=== PATIENT | male | born 1945 | race Caucasian/White ===

== ENCOUNTER 2017-09-14 08:30 | Inpatient (IN) | payer MEDICARE, BC ==
[~2017-09-14] VITALS: Ht 175.3 cm; Wt 78.5 kg
[2017-09-17] VITALS (14 sets, daily range): BP systolic 116–167; BP diastolic 61–81; PULSE 65–88; RESP 16; TEMP 98–98.2; O2SAT 97–99
[2017-09-17] MEDS ORDERED: VANCOMYCIN 1000 MG/NS 250 ML ON-CALL IV SCH ×2 (07:00)
[2017-09-17] MEDS ORDERED: DILT120C50 PO (07:18)
[2017-09-17] MEDS ORDERED: APIX5TAB PO (07:18)
[2017-09-17] MEDS ORDERED: ATOR10TA15 PO (07:18)
[2017-09-17] MEDS ORDERED: CYAN100025 SL (07:18)
[2017-09-17] MEDS ORDERED: ALLO100T PO (07:18)
[2017-09-17] MEDS ORDERED: HEPARIN SODIUM - IV 10,000 UNITS/10 ML VIAL ONE (07:19)
[2017-09-17] MEDS ORDERED: BUPIVACAINE/EPINEPHRINE 0.5% PF 30 ML VIAL ONE (07:19)
[2017-09-17] MEDS ORDERED: HEPARIN SODIUM - SQ 10,000 UNITS/ML VIAL ONE (07:19)
[2017-09-17] MEDS ORDERED: ceFAZolin INJ 1,000 MG VIAL ONE (07:19)
[2017-09-17] MEDS ORDERED: PROTAMINE SULFATE 50 MG/5 ML VIAL ONE (07:19)
[2017-09-17] MEDS ORDERED: HEPARIN-NS/PF INJ 0 ML ONE (07:20)
[2017-09-17] MEDS ORDERED: POVIDONE IODINE 5% (ANTISEPSIS KIT) 4 APPLICATIONS EACH NARE PRN (07:30)
[2017-09-17] MEDS ORDERED: METOPROLOL TARTRATE 25 MG TAB PO PRN (07:30)
[2017-09-17] MEDS ORDERED: CHLORHEXIDINE GLUCONATE 2 % 1 PACK (2 CLOTHS) TOPICAL PRN (07:30)
[2017-09-17] MEDS ORDERED: LACTATED RINGER'S 1000 ML IV PRN (07:30)
[2017-09-17] MEDS ORDERED: SODIUM CHLORID 0.9% 500 ML IV PRN (07:30)
[2017-09-17 07:46] LABS: AUTOMATED NEUTROPHIL # 4.8 TH/MM3 (1.8-7.7); BASOPHIL # 0.1 TH/MM3 (0-0.2); BASOPHIL % 1.9 % (0.0-2.0); EOSINOPHIL # 0.2 TH/MM3 (0-0.4); EOSINOPHIL % 2.4 % (0.0-4.0); HEMATOCRIT 49.2 % (39.0-51.0); HEMOGLOBIN 17.2 GM/DL (13.0-17.0); LYMPH % 19.4 % (9.0-44.0); LYMPHOCYTE # 1.4 TH/MM3 (1.0-4.8); MEAN CELL VOLUME 96.9 FL (80.0-100.0); MEAN CORPUSCULAR HEMOGLOBIN 33.8 PG (27.0-34.0); MEAN CORPUSCULAR HGB CONC 34.9 % (32.0-36.0); MEAN PLATELET VOLUME 7.5 FL (7.0-11.0); MONO % 8.2 % (0.0-8.0); MONOCYTE # 0.6 TH/MM3 (0-0.9); NEUT % 68.1 % (16.0-70.0); PLATELET COUNT 253 TH/MM3 (150-450); RED BLOOD COUNT 5.08 MIL/MM3 (4.50-5.90); RED CELL DISTRIBUTION WIDTH 15.1 % (11.6-17.2); WHITE BLOOD COUNT 7.1 TH/MM3 (4.0-11.0)
[2017-09-17] MEDS ORDERED: MIDAZOLAM HCL 2 MG/2 ML VIAL ONE (07:49)
[2017-09-17] MEDS ORDERED: FAMOTIDINE 20 MG/2 ML VIAL ONE (07:49)
[2017-09-17 07:51] LABS: INTERNATIONAL NORMALIZED RATIO 1.1 RATIO; PROTHROMBIN TIME - PATIENT 10.7 SEC (9.8-11.6)
[2017-09-17 08:03] LABS: BICARBONATE 26.2 MEQ/L (21.0-32.0); CALCIUM 9.2 MG/DL (8.5-10.1); CREATININE 0.94 MG/DL (0.60-1.30)
[2017-09-17] MEDS ORDERED: IOHEXOL 350 MG/ML 100 ML BTL (for RAD DIAG) OTHER ONE (09:01)
[2017-09-17] MEDS ORDERED: ACETAMINOPHEN 1000 MG/100 ML 100 ML IV ONE (10:58)
[2017-09-17] MEDS ORDERED: PROPOFOL 200 MG/20 ML AMP IV ONE (12:00)
[2017-09-17] MEDS ORDERED: LIDOCAINE HCL 1% PF 5 ML SYRINGE OTHER ONE (12:00)
[2017-09-17] MEDS ORDERED: GLYCOPYRROLATE 1 MG/5 ML SYRINGE IV PUSH ONE (12:00)
[2017-09-17] MEDS ORDERED: DEXAMETHASONE SOD PHOS 4 MG/ML VIAL IV ONE (12:00)
[2017-09-17] MEDS ORDERED: PHENYLEPH/NS 1000 MCG/10 ML SYR IV ONE (12:00)
[2017-09-17] MEDS ORDERED: NEOSTIGMINE 5 MG/5 ML SYRINGE IV PUSH ONE (12:00)
[2017-09-17] MEDS ORDERED: NORMOSOL R INJ 1,000 ML IV ONE (12:00)
[2017-09-17] MEDS ORDERED: SODIUM CHLORIDE 0.9% 20 ML VIAL IV ONE (12:00)
[2017-09-17] MEDS ORDERED: ROCURONIUM INJ 50 MG/5 ML SYRINGE IV PUSH ONE (12:00)
[2017-09-17] MEDS ORDERED: ONDANSETRON HCL 4 MG/2 ML VIAL IV PUSH ONE (12:00)
[2017-09-17] MEDS ORDERED: SOD CH 0.9%(ARTERIAL)500ML INJ 500 ML ONE (12:00)
[2017-09-17] MEDS ORDERED: RESP: ALBUTEROL 2.5 MG/3 ML NEB (SCH) ONE (12:40)
[2017-09-17] MEDS ORDERED: CLOPIDOGREL 75 MG TAB ONE (13:04)
[2017-09-17] MEDS ORDERED: SODIUM CHLORIDE 0.9% FLUSH 10 ML FLUSH IV FLUSH PRN ×2 (13:30)
[2017-09-17] MEDS ORDERED: CLOPIDOGREL 75 MG TAB PO ONE (13:30)
[2017-09-17] MEDS ORDERED: METOPROLOL TARTRATE 5 MG/5 ML VIAL IV PUSH PRN (13:30)
[2017-09-17] MEDS ORDERED: MORPHINE SULFATE 4 MG/ML INJ IV PUSH PRN (13:30)
[2017-09-17] MEDS ORDERED: ONDANSETRON HCL 4 MG/2 ML VIAL IV PUSH PRN (13:30)
[2017-09-17] MEDS ORDERED: LACTATED RINGER'S 1000 ML INJ 500 ML IV SCH (13:30)
[2017-09-17] MEDS ORDERED: DO NOT ADM ANY ANTICOAGULANT DRUGS PRN (13:45)
[2017-09-17] MEDS: ENOXAPARIN SODIUM 40 MG/0.4 ML SYRINGE SQ SCH (16:10)
[2017-09-17] MEDS ORDERED: ATORVASTATIN 10 MG TAB PO SCH (21:00)
[2017-09-18] VITALS (15 sets, daily range): BP systolic 135–143; BP diastolic 64–81; PULSE 70–93; RESP 16; TEMP 98–98.1; O2SAT 92–99
[2017-09-18] MEDS: ENOXAPARIN SODIUM 40 MG/0.4 ML SYRINGE SQ SCH (04:47)
[2017-09-18] MEDS ORDERED: ALLOPURINOL 100 MG TAB PO SCH (09:00)
[2017-09-18] MEDS ORDERED: DILTIAZEM-CD 120 MG CAP ER PO SCH (09:00)
[2017-09-18] MEDS ORDERED: ASPIRIN 81 MG CHEW TAB PO SCH (09:00)
--- NOTE | 2017-09-18 14:05 | MP ---
cc: JEANETH FERNANDEZ DATE OF SURGERY September 17, 2007. PREOPERATIVE DIAGNOSIS Infrarenal abdominal aortic aneurysm greater than 5.5 cm diameter. POSTOPERATIVE DIAGNOSIS Infrarenal abdominal aortic aneurysm greater than 5.5 cm diameter. OPERATIVE PROCEDURE Endovascular aneurysm repair. SURGEON Jeaneth Fernandez MD ANESTHESIA General endotracheal/local. DESCRIPTION OF THE OPERATIVE PROCEDURE With the patient in the supine position, general endotracheal anesthesia was induced. The abdomen, both groins and thighs were prepped with Betadine and draped in a sterile fashion. Appropriate IV antibiotic prophylaxis was administered. Following a protocol time-out, bilateral common femoral access was accomplished as follows: Curvilinear 3-cm incisions were performed along Hernan's lines within the inguinal skin creases through which the common femoral arteries were circumferentially mobilized from the inguinal ligaments to the common femoral bifurcations. Both arteries were heavily, concentrically calcified. Both mid-common femoral arteries were then accessed systemically from the mid-lumen level with 18-gauge arterial needles and J-wires advanced into the iliac arteries. The 7-Moldovan hemostatic sheaths were deployed over each J-wire. Angled glide wires were then guided into the suprarenal aorta. The angled glide wires were exchanged for Amplatz guidewires over Berenstein catheters. The Amplatz wires were parked within the thoracic aorta. Bilateral dilute contrast retrograde iliac angiograms were completed. CT angiography had suggested significant bilateral external iliac arterial occlusive disease which was confirmed with the retrograde studies. The disease appeared somewhat more substantial on the right than left. On the right side a 12-Moldovan sheath was deployed and on the left a 16-Moldovan sheath. The patient was then systemically heparinized with 5000 units. A marker pigtail catheter was advanced to the suprarenal level and aortogram accurately delineated the origin of both renal arteries. The main body endoprosthesis was deployed via the 16-Moldovan sheath at the immediate sub-renal level. The contralateral gate was then engaged with an angled glide wire/Berenstein catheter combination. Retrograde iliac angiogram via the right femoral hemostatic sheath accurately delineated the right iliac bifurcation allowing appropriate contralateral limb selection. Main body deployment completion was then accomplished. The aortic and iliac seal zones as well as overlap areas were then gently balloon-dilated with an aortic balloon. Completion angiogram revealed some minor constriction within the right iliac, barrow femoral interface. This stenosis was balloon dilated with a 6 x 40-mm Non-Compliant balloon inflated to 8 atmospheres. Repeat angiogram revealed no residual stenosis and rapid flow to the femoral arteries bilaterally. The femoral sheaths were removed and femoral puncture sites repaired with interrupted 6-0 Prolene. Both groin incisions were closed with two separate deep layers of continuous 4-0 Monocryl and skin with continuous subcuticular 5-0 Monocryl, reinforced with Steri-Strips and covered with sterile gauze. Instrument, needle and sponge counts were correct x2. No operative complications. At the completion of the operative procedure, Doppler flow was robust and biphasic within the pedal arteries bilaterally. FLUORO TIME 14.6 minutes. TOTAL CONTRAST USED 85 cc MD BHARATI Hargrove/TAMERA /4:08 PM /1:45 PM
[2017-09-19] MEDS ORDERED: CLOPIDOGREL 75 MG TAB PO SCH (09:00)
== END 2017-09-18 12:37 | disposition home or self-care (01) | DRG 269 ==
LOC: HSDI 09-17 06:35 → HCPC 09-17 14:00
PROVIDERS: ADMIT Surgery Vascular Surgery; ATTEND Surgery Vascular Surgery
PROC: B41J1ZZ Fluoroscopy of Other Lower Arteries using Low Osmolar Contrast (ICD-10-PCS; 2017-09-17)
PROC: 04V03DZ Restriction of Abdominal Aorta with Intraluminal Device, Percutaneous Approach (ICD-10-PCS; principal; 2017-09-17 08:05)
PROC: 047H3ZZ Dilation of Right External Iliac Artery, Percutaneous Approach (ICD-10-PCS; 2017-09-17 08:05)
DX: I71.4 Abdominal aortic aneurysm, without rupture (principal); J44.9 Chronic obstructive pulmonary disease, unspecified; I48.0 Paroxysmal atrial fibrillation; I10 Essential (primary) hypertension; I70.8 Atherosclerosis of other arteries; E78.5 Hyperlipidemia, unspecified; Z85.21 Personal history of malignant neoplasm of larynx; Z87.891 Personal history of nicotine dependence; Z79.01 Long term (current) use of anticoagulants; Z88.1 Allergy status to other antibiotic agents; Z88.0 Allergy status to penicillin
CPT/HCPCS: 75716; 80048; 85025; 85610; 85730; 86850; 86900; 86901; 86920; A7520; C1725; C1769; J0131; J0690; J1100; J1644; J1650; J2250; J2370; J2405; J2710; J2720; J3010; J3370; J7040; J7050; J7120; J7613; Q9967